=== PATIENT | male | born 1990 | race Caucasian/White ===

== ENCOUNTER 2016-09-14 17:44 | Emergency (ER) | payer MEDICAID ==
[2016-09-14 17:52] VITALS: BP 164/85; PULSE 65; RESP 20; TEMP 100.3
[2016-09-14] MEDS ORDERED: KETOROLAC 60 MG/2 ML VIAL IM STA (18:24)
[2016-09-14] MEDS ORDERED: ACET/COD 300 MG/30 MG STARTER PACK 6 TAB BTL PO STA (18:25)
--- NOTE | 2016-09-14 18:27 | ED ---
ENT HPI - General Chief complaint: Dental/Oral Stated complaint: dental pain Time Seen by Provider: 09/14/16 17:54 Source: patient, RN notes reviewed Mode of arrival: ambulatory Limitations: no limitations - History of Present Illness Initial comments: 26-year-old male presented to the ER complaining of dental pain. He states that he has a history of multiple dental caries and a tooth fracture on the upper left molar. He states that he has been trying to get up with his dentist however tenderness is out of town but he did make an appointment with a new dentist for tomorrow. He states that the pain and risk of infection became too great so he decided to come to the ER today. He states that at home he has been using dental [id number] products including a topical anesthetic, ibuprofen, sealing agents without much relief. He states that he has had some mild cheek swelling as well as a headache from the tooth pain. He denies any constitutional symptoms including nausea, vomiting, diarrhea, vision change, difficulty swallowing. - Related Data Home Medications Medication Instructions Recorded Confirmed Dextroamphetamine/Amphetamine 30 mg PO QAM 09/14/16 09/14/16 [Adderall Xr] busPIRone HCl [Buspar] 5 mg PO BID PRN 09/14/16 09/14/16 Previous Rx's Medication Instructions Recorded Penicillin V Potassium [Pen Vee K] 500 mg PO TID #30 tab 09/14/16 Allergies Allergy/AdvReac Type Severity Reaction Status Date / Time No Known Allergies Allergy Verified 09/14/16 18:01 Review of Systems ROS Statement: Those systems with pertinent positive or pertinent negative responses have been documented in the HPI. ROS Other: All systems not noted in ROS Statement are negative. Past Medical History Past Medical History: No Reported History History of Any Multi-Drug Resistant Organisms: None Reported Additional Past Surgical History / Comment(s): heel surgery Past Psychological History: Anxiety Smoking Status: Former smoker Past Alcohol Use History: Occasional Past Drug Use History: None Reported General Exam Limitations: no limitations General appearance: alert, in distress (Mild secondary to discomfort) Head exam: Present: atraumatic, normocephalic, other (Mild edema left cheek) Eye exam: Present: normal appearance, PERRL, EOMI Pupils: Present: normal accommodation ENT exam: Present: normal oropharynx, mucous membranes moist, normal external ear exam, other (Bilateral upper and lower molars with caries. Left tooth #15 with fracture. There is some [id number] white bonding material present. No evidence of abscess.) Neck exam: Present: normal inspection, full ROM Respiratory exam: Present: normal lung sounds bilaterally Cardiovascular Exam: Present: regular rate, normal rhythm Neurological exam: Present: alert, oriented X3, CN II-XII intact, normal gait Psychiatric exam: Present: normal affect, normal mood Skin exam: Present: warm, dry, intact Course Vital Signs 09/14/16 09/14/16 17:48 19:07 Temperature 100.3 F H 100.3 F H Pulse Rate 65 65 Respiratory 20 20 Rate Blood Pressure 164/85 164/85 O2 Sat by Pulse 98 98 Oximetry Medical Decision Making - Medical Decision Making 26-year-old male presented to the ER with bilateral dental pain. He does have a tooth fracture of tooth #15. He has tried [id number] dental bonding products as well as topical anesthetics and ibuprofen with little relief. He is concerned with infection as well as multiple food products have been stuck in the area and he has had some swelling on the left hand side of his face. Upon exam he does appear to have multiple dental caries and fracture there is no evidence of abscess. Due to extensive dental issues will recommend coverage with antibiotics and patient was placed on penicillin. He also was running a low-grade fever and hit arty taken Motrin today in his attic to the decision to start him on antibiotics. He is to continue taking the ibuprofen regularly after 24 hours due to his Toradol injection today. Patient was also given Toradol. The inflammation and pain in the ER as well as a starter pack of Tylenol 3. This will give him pain coverage until his dental appointment which she was instructed to keep tomorrow. All questions were answered and patient was agreeable to treatment plan. Patient discharged ER with any worsening symptoms or concerns. Disposition Clinical Impression: Fracture of tooth Disposition: HOME SELF-CARE Condition: Good Instructions: Toothache (ED) Additional Instructions: To keep appointment with dentist tomorrow. To return to the ER with any worsening or new symptoms or concerns. Prescriptions: Penicillin V Potassium [Pen Vee K] 500 mg PO TID #30 tab Referrals: Adan Lea MD [Primary Care Provider] - 1-2 days Time of Disposition: 18:39
== END 2016-09-14 19:07 | disposition home or self-care (01) ==
LOC: EC 17:44
DX: S02.5XXA Fracture of tooth (traumatic), initial encounter for closed fracture (principal); F41.9 Anxiety disorder, unspecified; Z87.891 Personal history of nicotine dependence; Z79.899 Other long term (current) drug therapy
CPT/HCPCS: 99282; 96372; J1885

== ENCOUNTER 2016-11-17 18:03 | Emergency (ER) | payer MEDICAID ==
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
[2016-11-17 20:36] LABS: Basophils % (A) 0 %; CH 31.2; CHCM 33.6; Eosinophils # (A) 0.1 k/uL (0-0.7); Eosinophils % (A) 2 %; HCT 45.2 % (39.0-53.0); HDW 2.39; HGB 15.1 gm/dL (13.0-17.5); Luc # (Auto) 0.08; Luc % (Auto) 2; Lymphocytes # (A) 1.5 k/uL (1.0-4.8); Lymphocytes % (A) 27 %; MCH 31.2 pg (25.0-35.0); MCHC 33.4 g/dL (31.0-37.0); MCV 93.4 fL (80.0-100.0); Mean Platelet Volume 6.8; Monocytes # (A) 0.2 k/uL (0-1.0); Monocytes % (A) 4 %; Neutrophils # (A) 3.7 k/uL (1.3-7.7); Neutrophils % (A) 66 %; RBC 4.84 m/uL (4.30-5.90); RDW 13.3 % (11.5-15.5); WBC 5.6 k/uL (3.8-10.6); WBC (Perox) 5.19
[2016-11-17 20:50] LABS: ALT 32 U/L (21-72); AST 18 U/L (17-59); Alkaline Phosphatase 76 U/L (38-126); Anion Gap 8 mmol/L; Blood Urea Nitrogen 15 mg/dL (9-20); Calcium 9.2 mg/dL (8.4-10.2); Carbon Dioxide 25 mmol/L (22-30); Chloride 110 mmol/L (98-107); Glucose 101 mg/dL (74-99); Non-African American GFR(MDRD) >60 (>60 ml/min/1.73 sqM); Potassium 4.3 mmol/L (3.5-5.1); Sodium 143 mmol/L (137-145); Total Bilirubin 0.3 mg/dL (0.2-1.3); Total Protein 6.5 g/dL (6.3-8.2)
[2016-11-17 20:53] LABS: Amorphous Sediment,Urine Occasional /hpf; Appearance,Urine Turbid (Clear); Bacteria,Urine Many /hpf; Bilirubin,Urine Negative (Negative); Glucose,Urine (UA) Negative (Negative); Ketones,Urine Negative (Negative); Leukocyte Esterase,Urine Negative (Negative); Mucus,Urine Occasional /hpf; Nitrite,Urine Negative (Negative); Particle Count 23652; Protein,Urine 1+ (Negative); RBC,Urine 16 /hpf (0-5); Specific Gravity,Urine 1.021 (1.001-1.035); UA Billing (MACRO vs. MICRO) MICRO
[2016-11-17] MEDS ORDERED: LORazepam 2 MG/ML SYRINGE IV STA (23:29)
[2016-11-18 05:12] VITALS: TEMP 97.6
[2016-11-18 12:24] VITALS: BP 130/63; PULSE 56; RESP 20
== END 2016-11-18 12:43 ==
LOC: EC 18:03
DX: R45.851 Suicidal ideations (principal); Z79.899 Other long term (current) drug therapy; Z87.891 Personal history of nicotine dependence
CPT/HCPCS: 36415; 80053; 80306; 81001; 82075; 85025; 99285